=== PATIENT | female | born 1935 | race African-American/Black ===

== ENCOUNTER → 2016-06-15 | Outpatient (CLI) | payer MEDICARE ==
[2013-06-22 19:08] VITALS: BP 152/82
[~2016-06-15] MED LIST: ASPI81TA2 PO; CRESTOR5 MG PO; LEVO88TA4 PO; MULT9LIQ9 PO; OMEG1CAP38 PO; POTA20TA4 PO; SITA25TA PO; TRIA1TAB5 PO; [UNRECOGNIZED DRUG - CODE] PO
--- NOTE | 2016-06-15 16:29 | RAD ---
Left scapula, 2 views, 06/15/2016: History: Scapular discomfort No fracture or destructive bony lesion is seen. There is mild spurring at the glenohumeral and acromioclavicular articulations. IMPRESSION: No acute left scapular abnormality is detected. Lumbar spine, 3 views, 06/15/2016: History: Pain There is a mild right convexity lumbar scoliosis. The lumbar vertebral heights are well-maintained. The intervertebral disc spaces are well preserved. There are mild scattered marginal spurs. There are moderate degenerative changes involving the facet joints bilaterally in the lower lumbar spine. There is mild associated anterolisthesis at L3-4 and L4-5. IMPRESSION: 1. Mild lumbar scoliosis. 2. Moderate bilateral facet joint arthropathy in the lower lumbar spine with a mild associated spondylolisthesis at L3-4 and L4-5.
== END | disposition home or self-care (01) ==
LOC: RAD 15:18
PROVIDERS: ATTEND Internal Medicine Cardiovascular Disease
DX: M25.512 Pain in left shoulder (principal); E11.9 Type 2 diabetes mellitus without complications
CPT/HCPCS: 36415; 72100; 73010; 83036

== ENCOUNTER → 2016-08-03 | Outpatient (CLI) | payer MEDICARE ==
[2013-06-22 19:08] VITALS: BP 152/82
== END | disposition home or self-care (01) ==
LOC: LAB 10:11
PROVIDERS: ATTEND Internal Medicine Cardiovascular Disease
DX: E11.9 Type 2 diabetes mellitus without complications (principal)
CPT/HCPCS: 36415; 82465; 83036

== ENCOUNTER → 2016-10-03 | Outpatient (CLI) | payer MEDICARE ==
[2013-06-22 19:08] VITALS: BP 152/82
[~2016-10-03] MED LIST changes: +ASPI-630 PO; -ASPI81TA2 PO
--- NOTE | 2016-10-03 10:13 | RAD ---
Indication knee pain for several months. AP oblique and lateral views of both knees were obtained. Views of the right knee demonstrate normal bony mineralization. An acute finding is not seen. Significant degenerative changes are not seen particularly given the patient's age. Views of the left knee also demonstrate normal bony mineralization. No acute finding is seen. Significant degenerative changes are not apparent again given the patient's age. Vascular calcification is noted. IMPRESSION: No significant finding involving either knee seen on plain films
--- NOTE | 2016-10-03 10:50 | RAD ---
EXAM: Lumbar spine MRI without contrast. HISTORY: Lower back pain and bilateral lower extremity radiculopathy. TECHNIQUE: Multiplanar, multisequence magnetic resonance imaging of the lumbar spine was performed without contrast. COMPARISON: Radiographs dated 06/15/2016. FINDINGS: There is grade 1 anterolisthesis of L2 on L3, measuring 1 to 2 mm. There is grade 1 anterolisthesis of L3 on L4, measuring 4 mm. There is grade 1 anterolisthesis of L4 and L5, measuring 3 mm. There is grade 1 anterolisthesis of L5 on S1, measuring 2 mm. There is mild lumbar scoliosis. There are few vertebral body hemangiomas. No suspicious osseous lesion is seen. There is disc desiccation and endplate remodeling at multiple levels. The conus terminates at L1. There is a fatty filum without lipoma. At L1-L2, there is mild facet arthropathy. There is no stenosis. At L2-L3, there is a disc bulge and endplate remodeling. There is mild facet arthropathy. There is hypertrophy of the ligamentum flavum. There is minimal bilateral foraminal stenosis. There is mild to moderate central canal stenosis. At L3-L4, there is a disc bulge and endplate remodeling. There is moderate to severe facet arthropathy. There is hypertrophy of the ligamentum flavum. There is anterolisthesis. There is minimal bilateral foraminal stenosis. There is moderate central canal stenosis. At L4-L5, there is a left paracentral disc protrusion with 4 mm superior extrusion superimposed on a disc bulge and endplate remodeling. There is moderate to severe right and mild left facet arthropathy. There is anterolisthesis. There is minimal right foraminal stenosis. There is slight effacement of the left lateral recess and deviation of the traversing left nerve roots. There is mild to moderate central canal stenosis. At L5-S1, there is a disc bulge. There is mild left greater than right facet arthropathy. There is no stenosis. IMPRESSION: 1. Multilevel degenerative change of the lumbar spine, described in detail above. 2. Mild grade 1 anterolisthesis of multiple lumbar levels and mild lumbar scoliosis. Electronically signed by: Swapna Gonzalez MD (10/03/2016 10:46 AM) [id number]
== END | disposition home or self-care (01) ==
LOC: MRI 13:05
PROVIDERS: ATTEND Internal Medicine Cardiovascular Disease
DX: M51.16 Intervertebral disc disorders with radiculopathy, lumbar region (principal); M25.561 Pain in right knee; M25.562 Pain in left knee
CPT/HCPCS: 72148; 73562

== ENCOUNTER → 2017-10-16 | Outpatient (CLI) | payer MEDICARE ==
[2013-06-22 19:08] VITALS: BP 152/82
[2017-10-16 15:08] LABS: BASO % 1 % (0-3); EOS # 0.3 x10^3/uL (0.0-0.7); EOS % 4 % (0-3); HEMATOCRIT 37.6 % (36.0-47.0); HEMOGLOBIN 12.8 g/dL (12.0-15.5); LYMPH # 2.5 x10^3/uL (1.0-4.8); LYMPH % 39 % (24-48); MEAN CORPUSCULAR HEMOGLOBIN 30 pg (25-35); MEAN CORPUSCULAR HGB CONC 34 g/dL (31-37); MEAN CORPUSCULAR VOLUME 88 fL (79-100); MONO # 0.5 x10^3/uL (0.0-1.1); MONO % 8 % (0-9); NEUT # 3.1 x10^3uL (1.8-7.7); NEUT % 48 % (31-73); PLATELET COUNT 229 x10^3/uL (140-400); RED BLOOD COUNT 4.28 x10^6/uL (3.50-5.40); RED CELL DISTRIBUTION WIDTH 13.5 % (11.5-14.5); WHITE BLOOD COUNT 6.5 x10^3/uL (4.0-11.0)
--- NOTE | 2017-10-16 15:29 | RAD ---
EXAM: Chest, 2 views. HISTORY: Left renal neoplasm. COMPARISON: None. FINDINGS: Frontal and lateral views of the chest are obtained. There is no infiltrate, pleural effusion or pneumothorax. There is a prominent cardiac silhouette. There is a tortuous thoracic aorta. There is a clip within the right upper quadrant. IMPRESSION: No acute pulmonary finding. Electronically signed by: Swapna Gonzalez MD (10/16/2017 3:26 PM) [place] [id number]
--- NOTE | 2017-10-16 15:59 | RAD ---
EXAM: Renal sonogram. HISTORY: Renal cancer. TECHNIQUE: Sonographic imaging of the kidneys and bladder was performed. COMPARISON: 08/18/2015. FINDINGS: The right kidney measures 11.2 cm [id number]. The left kidney measures 8.6 cm [id number]. The left kidney is partially obscured due to bowel gas and body habitus. There is increased bilateral renal cortical echogenicity. There is a prominent right renal collecting system suggest a mild hydronephrosis. The bladder is unremarkable. IMPRESSION: 1. Mildly decreased left renal size consistent with a reported history of prior partial nephrectomy surgery. No renal mass is seen. However, the left kidney is partially obscured due to bowel gas and body habitus. 2. Suspected mild right hydronephrosis, of uncertain etiology. 2. Echogenic renal parenchyma, a finding which can be seen with medical renal disease. Electronically signed by: Swapna Gonzalez MD (10/16/2017 3:56 PM) [id number]
== END | disposition home or self-care (01) ==
LOC: US 14:50
PROVIDERS: ATTEND Urology
DX: C64.2 Malignant neoplasm of left kidney, except renal pelvis (principal); I10 Essential (primary) hypertension; E11.9 Type 2 diabetes mellitus without complications; Z90.5 Acquired absence of kidney
CPT/HCPCS: 36415; 71046; 76770; 85025